=== PATIENT | male | born 1975 ===

== ENCOUNTER 2017-01-03 09:04 | Emergency (ER) | payer OTHER ==
[2017-01-03] MEDS ORDERED: Lidocaine 2% 10 ML* VIAL INJ ONE ×2 (09:26→10:41)
[2017-01-03] MEDS ORDERED: Lidocaine 2% PF * 5 ML VIAL ONE ×3 (09:41→10:28)
[2017-01-03] MEDS ORDERED: Tetan/Diph/Pertus SYR(Tdap)* 0.5 ML SYR(BOOSTRIX) use SYR IM ONE (10:17)
--- NOTE | 2017-01-03 10:22 | UC ---
Alexa Arguello Claudia, scribed for Demar Coy MD on 01/03/17 at 0924 . Laceration HPI - HPI Summary HPI Summary: 41 year old male presents to the [facility] with a laceration to the anterior aspect of his right wrist and to his hypothenar eminence of his right hand. Pt states he was removing tile from a wall when the tile broke slid off the wall and cut his right wrist. He states it happened around 9:00am this am 01/03/17. Pt states some lightheadedness upon examination of the laceration. Pt is lying on the bed comfortably. Pt denies any associated Sx of fever or chills as well as any aggravating or alleviating factors. - History Of Current Complaint Chief Complaint: UCLaceration Stated Complaint: WRIST LACERATION Time Seen by Provider: 01/03/17 09:18 Laceration Location: Hand - right Mechanism Of Injury: Sharp Trauma Onset/Duration: Sudden Onset, Lasting Minutes, Still Present - Allergies/Home Medications Allergies/Adverse Reactions: Allergies Allergy/AdvReac Type Severity Reaction Status Date / Time Acetaminophen [From Vicodin] Allergy Nausea And Verified 01/03/17 09:13 Vomiting Hydrocodone [From Vicodin] Allergy Nausea And Verified 01/03/17 09:13 Vomiting PMH/Surg Hx/FS Hx/Imm Hx Previously Healthy: Yes - Surgical History Surgical History: None - Family History Known Family History: Positive: None, Unknown - Social History Occupation: Employed Full-time Alcohol Use: None Substance Use Type: Marijuana Substance Use Comment - Amount & Last Used: maybe once a month Smoking Status (MU): Current Every Day Smoker Type: Smokeless Tobacco Length of Time of Smoking/Using Tobacco: >20 Have You Smoked in the Last Year: Yes Review of Systems Constitutional: Negative - NO FEVER CHILLS Skin: Other - LACERATION (2X) ONE TO THE ANTERIOR ASPECT OF THE R WRIST AND THE HYPOTHENAR EMINENCE OF THE R HAND Eyes: Negative ENT: Negative Respiratory: Negative Cardiovascular: Negative Gastrointestinal: Negative Genitourinary: Negative Motor: Negative Neurovascular: Negative Musculoskeletal: Negative Neurological: Negative Psychological: Negative All Other Systems Reviewed And Are Negative: Yes Physical Exam Triage Information Reviewed: Yes Appearance: Well-Appearing, No Pain Distress, Well-Nourished Vital Signs: Initial Vital Signs Temp 99.0 F 06/26/17 09:10 Pulse 76 01/03/17 09:10 Resp 18 01/03/17 09:10 BP 138/91 01/03/17 09:10 Pulse Ox 98 01/03/17 09:10 Vital Signs Reviewed: Yes Eyes: Positive: Conjunctiva Clear ENT: Positive: Normal ENT inspection, Hearing grossly normal, Pharynx normal Neck exam: Normal Neck: Positive: Supple, Nontender, No Lymphadenopathy Respiratory: Positive: Chest non-tender, Lungs clear, Normal breath sounds Cardiovascular: Positive: RRR, No Murmur, Pulses Normal Skin: Positive: Other - LACERATION RIGHT HAND THINER MUSCLE + 3 CM IN DIAMETER, DEEP LACERATION RIGHT WRIST : + 3 CM , DEEP Laceration Repair - Laceration Repair 1 Description: Linear - RIGHT WRIST Laceration Size After Repair: Length (cm) - 3, Width (mm) - 2, Depth (mm) - 3 Modified For Repair: No Type Injection: Local Anesthesia Used: 2.0% Lido - 5 CC Cleansing Completed Via Routine Prep: Yes Irrigation With Pressure Irrigation Device: Yes Closure Method: Single Layer Suture Of: Skin Suture Type: Nylon - 5.0 2 Description: Linear - RIGHT HAND Laceration Size After Repair: Length (cm) - 3, Width (mm) - 3, Depth (mm) - 3 Type Injection: Local Anesthesia Used: 2.0% Lido - 5 CC Cleansing Completed Via Routine Prep: Yes Irrigation With Pressure Irrigation Device: Yes Closure Material: Sutures Closure Method: Single Layer Suture Of: Skin Suture Type: Nylon Re-Evaluation - Re-Evaluation 1 Re-Evaluation Time: 09:35 Comment: Pt is feeling better, he is stil lying comfortably on the bed. He denies nausea at this time. Laceration Course/Dx - Differential Dx - Laceration/Wound Provider Diagnoses: LACERATION RIGHT HAND. LACERATION RIGHT WRIST Discharge - Discharge Plan Condition: Stable Disposition: HOME Prescriptions: Amoxicillin/Clavulanate TAB* [Augmentin TAB 875*] 875 mg PO BID #20 tab Patient Education Materials: Care For Your Stitches (ED), Laceration (ED) Referrals: Non Staff,Doctor [Primary Care Provider] - 2 Days Additional Instructions: PLEASE FOLLOW UP IN 2 DAYS FOR WOUND CHECK AND THEN 10 DAYS FOR SUTURE REMOVAL SOONER IF HAVING PAIN , SWELLING , HEMATOMA , DISCHARGE , OR ANY SIGN OF INFECTION The documentation as recorded by the Alexa davis Claudia accurately reflects the service I personally performed and the decisions made by , Demar Coy MD.
== END 2017-01-03 10:52 | disposition home or self-care (01) ==
LOC: UCEAST 09:04
DX: S61.411A Laceration without foreign body of right hand, initial encounter (principal); S61.511A Laceration without foreign body of right wrist, initial encounter; W26.8XXA Contact with other sharp object(s), not elsewhere classified, initial encounter; Y93.89 Activity, other specified; Y92.9 Unspecified place or not applicable; Y99.9 Unspecified external cause status; Z23 Encounter for immunization; Z88.6 Allergy status to analgesic agent; Z88.5 Allergy status to narcotic agent; Z72.0 Tobacco use
CPT/HCPCS: 12002; 12031; 12041; 90471; 90715; 99212; G0463; J2001

== ENCOUNTER 2017-01-05 07:17 | Emergency (ER) | payer OTHER ==
--- NOTE | 2017-01-18 13:11 | UC ---
Jacob Arguello Salem, scribed for Monica Martin MD on 01/05/17 at 0755 . HPI Wound/Suture Re-check - HPI Summary HPI Summary: Patient is a 41 y/o M who presents to the for wound check. Pt was seen in the 2 days ago for laceration repair on the anterior aspect of his right wrist and right forearm. He states he cut himself while working with tiles at work. He also states that he changed his wound dressing yesterday and put antibiotic ointment on it. He report mild lightheadedness with caring for wound. He lives with his 8 y/o daughter and pt is right-handed. Pt also has an old injury (15 years ago) to his right 5th finger. His last Tetanus shot was 2 days ago. Pt also reports complaint to left elbow. Patients medication reviewed this visit. - History Of Current Complaint Chief Complaint: UCSkin Stated Complaint: WOUND RECHECK Time Seen by Provider: 01/05/17 07:45 Hx Obtained From: Patient Onset/Duration: Gradual Onset, Lasting Days, Still Present Surgical Site: RUE. Severity: Moderate Procedure Type: Suture re-check. Surgery Date: 01/03/17 - Allergies/Home Medications Allergies/Adverse Reactions: Allergies Allergy/AdvReac Type Severity Reaction Status Date / Time Hydrocodone [From Vicodin] Allergy Nausea And Verified 01/17/17 07:17 Vomiting PMH/Surg Hx/FS Hx/Imm Hx Previously Healthy: Yes - Surgical History Surgical History: None - Family History Known Family History: Positive: Hypertension - Both parents., Diabetes - Both parents. - Social History Alcohol Use: None Substance Use Type: Marijuana Substance Use Comment - Amount & Last Used: maybe once a month Smoking Status (MU): Current Every Day Smoker Type: Smokeless Tobacco Length of Time of Smoking/Using Tobacco: >20 Have You Smoked in the Last Year: Yes Review of Systems Constitutional: Negative Skin: Other - See HPI. All Other Systems Reviewed And Are Negative: Yes Physical Exam Triage Information Reviewed: Yes Appearance: Well-Nourished Vital Signs: Initial Vital Signs Temp 98.8 F 01/05/17 07:27 Pulse 96 01/05/17 07:27 Resp 16 01/05/17 07:27 BP 125/82 01/05/17 07:27 Pulse Ox 97 01/05/17 07:27 Vital Signs Reviewed: Yes Eye Exam: Normal ENT Exam: Normal Neck exam: Normal Neck: Positive: No Lymphadenopathy Respiratory Exam: Normal - no dyspnea, no tachypnea, normal respiratory rate Cardiovascular Exam: Normal - Heart rate regular, good general skin color, good capillary refill Abdominal Exam: Normal Abdomen Description: Positive: Nontender, No Organomegaly, Soft Bowel Sounds: Positive: Present Musculoskeletal Exam: Normal Musculoskeletal: Positive: Strength Intact, Other: - Permanently flexed right 5th finger. Neurological Exam: Normal - nonfocal, grossly intact Psychological Exam: Normal - conversing easily and appropriately Skin Exam: Other - Laceration right hand: + 3 cm in diameter, deep. Laceration right wrist : + 3 cm , deep. Course/Dx - Course Course Of Treatment: See AVS instructions. Reviewed tx plan / coa / wound care. Question answered to the best of my ability. - Differential Dx - Laceration/Wound Provider Diagnoses: R wrist laceration recheck Discharge - Discharge Plan Condition: Stable Disposition: HOME Patient Education Materials: Care For Your Stitches (ED), Laceration (ED) Referrals: [facility] [place] [facility] [Outside] Additional Instructions: Please follow up with [facility] [place] as discussed. Seek medical attention for worsening problems in the meantime. Suture removal 2 weeks from incident. Seek medical attention if worse in the meantime. No soaking. Ok daily shower, pat dry, light cover with thin layer antibacterial ointment, dry guaze, roll guaze. If you use bandaid then over the counter Bo and Bo cloth bandaid. White unscented soap is preferable. Elevate hand as possible. Splint for comfort and as needed to protect for comfort. Avoid direct sun exposure indefinitely. The documentation as recorded by the Jacob davis Salem accurately reflects the service I personally performed and the decisions made by me, Monica Martin MD.
== END 2017-01-05 08:42 | disposition home or self-care (01) ==
LOC: UCEAST 07:17
DX: S61.511D Laceration without foreign body of right wrist, subsequent encounter (principal); Z72.0 Tobacco use
CPT/HCPCS: 99212; G0463

== ENCOUNTER 2017-01-17 07:03 | Emergency (ER) | payer OTHER ==
[2017-01-17] MEDS ORDERED: Benzoin Compound STICK ONE (07:19)
--- NOTE | 2017-01-17 07:31 | UC ---
HPI Wound/Suture Re-check - HPI Summary HPI Summary: 41 yo male here for suture removal 01/03 no complaints hx tendon lac right hand about 10 yrs ago - History Of Current Complaint Chief Complaint: UCLaceration Stated Complaint: STAPLE REMOVAL Time Seen by Provider: 01/17/17 07:17 Hx Obtained From: Patient Onset/Duration: Sudden Onset Pain Intensity: 0 Procedure Type: Lac repair - Allergies/Home Medications Allergies/Adverse Reactions: Allergies Allergy/AdvReac Type Severity Reaction Status Date / Time Hydrocodone [From Vicodin] Allergy Nausea And Verified 01/17/17 07:17 Vomiting PMH/Surg Hx/FS Hx/Imm Hx Previously Healthy: Yes - Surgical History Surgical History: None - Family History Known Family History: Positive: Cardiac Disease, Hypertension - Social History Alcohol Use: None Substance Use Type: Marijuana Substance Use Comment - Amount & Last Used: maybe once a month Smoking Status (MU): Current Every Day Smoker Type: Smokeless Tobacco Amount Used/How Often: 2 can weekly Length of Time of Smoking/Using Tobacco: >20 Have You Smoked in the Last Year: Yes - Immunization History Most Recent Tetanus Shot: 01/03/17 Review of Systems Constitutional: Negative Skin: Negative Eyes: Negative ENT: Negative Respiratory: Negative Cardiovascular: Negative Gastrointestinal: Negative Genitourinary: Negative Motor: Negative Neurovascular: Negative Musculoskeletal: Negative Neurological: Negative Psychological: Negative All Other Systems Reviewed And Are Negative: Yes Physical Exam Triage Information Reviewed: Yes Appearance: Well-Appearing, No Pain Distress, Well-Nourished Vital Signs: Initial Vital Signs Temp 99.3 F 01/17/17 07:08 Pulse 65 01/17/17 07:08 Resp 16 01/17/17 07:08 BP 129/79 01/17/17 07:08 Pulse Ox 98 01/17/17 07:08 Vital Signs Reviewed: Yes Eyes: Positive: Conjunctiva Clear ENT: Positive: Hearing grossly normal. Negative: Nasal congestion, Nasal drainage, Tonsillar exudate, Trismus, Muffled/hoarse voice Neck: Positive: Supple, Nontender, No Lymphadenopathy Respiratory: Positive: Lungs clear, Normal breath sounds, No respiratory distress, No accessory muscle use Cardiovascular: Positive: RRR, No Murmur Musculoskeletal: Positive: ROM Intact, No Edema Neurological: Positive: Alert Psychological Exam: Normal Skin Exam: Other - healing lacerations right thenar eminence and flexor aspect of wrist Course/Dx - Course Course Of Treatment: sutures removed. steri strips applied to wrist laceration - Differential Dx - Laceration/Wound Provider Diagnoses: suture removal right wrist and thenar eminence Discharge - Discharge Plan Condition: Stable Disposition: HOME Patient Education Materials: Stitches Removal (ED) Additional Instructions: call for any questions return for any problems
== END 2017-01-17 07:48 | disposition home or self-care (01) ==
LOC: UCEAST 07:03
DX: S61.511D Laceration without foreign body of right wrist, subsequent encounter (principal); X58.XXXD Exposure to other specified factors, subsequent encounter; Y92.9 Unspecified place or not applicable; Z88.5 Allergy status to narcotic agent; F17.210 Nicotine dependence, cigarettes, uncomplicated